=== PATIENT | female | born 1950 | race Asian ===

== ENCOUNTER 2017-02-07 08:03 | Outpatient (CLI) | payer OTHER ==
[~2017-02-07] VITALS: Ht 165.1 cm; Wt 73.9 kg
[2017-02-07 08:30] VITALS: BP 139/59; TEMP 98
[2017-02-07 09:30] VITALS: BP 125/62; TEMP 98
== END 2017-02-07 09:38 | disposition home or self-care (01) ==
LOC: INF 08:03
DX: J30.9 Allergic rhinitis, unspecified (principal); M77.31 Calcaneal spur, right foot; E11.9 Type 2 diabetes mellitus without complications; R30.0 Dysuria
CPT/HCPCS: 96365; Q0138

== ENCOUNTER 2017-04-22 12:40 | Outpatient (CLI) | payer OTHER | END 2017-04-22 19:28 | disposition home or self-care (01) | LOC: CT 12:40 | DX: G51.0 Bell's palsy (principal); G81.94 Hemiplegia, unspecified affecting left nondominant side; R41.0 Disorientation, unspecified ==

== ENCOUNTER 2020-02-25 11:49 | Emergency (ER) | payer OTHER ==
[~2020-02-25] VITALS: Ht 157.5 cm; Wt 63.5 kg
[2020-02-25 11:55] VITALS: TEMP 97
[2020-02-25 12:03] LABS: PLATELET COUNT 165 K/uL (152-353)
[2020-02-25 12:19] LABS: PARTIAL THROMBOPLASTIN TIME 27.7 SECONDS (24.5-33.6)
[2020-02-25 13:06] LABS: SODIUM 129 mmol/L (136-145)
[2020-02-25 13:10] LABS: POTASSIUM 2.3 mmol/L (3.6-5.2)
[2020-02-25 13:38] VITALS: BP 128/61
== END 2020-02-25 13:40 | disposition home or self-care (01) ==
LOC: ED 11:49
PROVIDERS: Hospitalist
DX: E11.649 Type 2 diabetes mellitus with hypoglycemia without coma (principal); N18.6 End stage renal disease; Z99.2 Dependence on renal dialysis; E86.0 Dehydration
CPT/HCPCS: 80053; 80320; 82550; 82553; 82962; 83880; 84484; 85027; 85610; 85730; 93005; 96365; 99283; 99284

== ENCOUNTER 2020-02-26 10:01 | Emergency (ER) | payer OTHER ==
[~2020-02-26] VITALS: Ht 157.5 cm; Wt 63.5 kg
[2020-02-26 10:42] LABS: PLATELET COUNT 208 K/uL (152-353)
[2020-02-26 10:53] LABS: POTASSIUM 2.6 mmol/L (3.6-5.2); SODIUM 127 mmol/L (136-145)
[2020-02-26 12:35] VITALS: BP 129/59; TEMP 98.4
== END 2020-02-26 12:29 | disposition home or self-care (01) ==
LOC: ED 10:01
PROVIDERS: Family Medicine
DX: R07.89 Other chest pain (principal); N18.6 End stage renal disease; Z99.2 Dependence on renal dialysis; E87.6 Hypokalemia
CPT/HCPCS: 36415; 80053; 82550; 82553; 84484; 85027; 93005; 99284

== ENCOUNTER 2020-02-29 18:37 | Emergency (ER) | payer OTHER ==
[~2020-02-29] VITALS: Ht 157.5 cm; Wt 78.5 kg
[2020-02-29 19:11] LABS: PLATELET COUNT 225 K/uL (152-353)
[2020-02-29 19:30] LABS: SODIUM 132 mmol/L (136-145)
[2020-02-29 19:36] LABS: POTASSIUM 2.2 mmol/L (3.6-5.2)
[2020-02-29 22:53] VITALS: BP 125/76; TEMP 98.4
== END 2020-02-29 22:50 | disposition home or self-care (01) ==
LOC: ED 18:37
PROVIDERS: Family Medicine
DX: E11.649 Type 2 diabetes mellitus with hypoglycemia without coma (principal); E87.6 Hypokalemia; Z99.2 Dependence on renal dialysis
CPT/HCPCS: 36415; 80053; 82550; 82553; 82962; 83605; 83880; 84484; 85027; 93005; 96365; 96366; 96375; 96376; 99284; J7060

== ENCOUNTER 2020-04-23 09:48 | Emergency (ER) | payer OTHER ==
[~2020-04-23] VITALS: Ht 157.5 cm; Wt 78.5 kg
[2020-04-23 10:21] LABS: PLATELET COUNT 310 K/uL (152-353)
[2020-04-23 11:07] LABS: POTASSIUM 3.1 mmol/L (3.6-5.2)
[2020-04-23 12:42] VITALS: BP 164/64; TEMP 97.8
== END 2020-04-23 12:50 | disposition home or self-care (01) ==
LOC: ED 09:48
PROVIDERS: Emergency Medicine
DX: R51 Headache (principal); N18.9 Chronic kidney disease, unspecified; Z99.2 Dependence on renal dialysis; Z03.818 Encounter for observation for suspected exposure to other biological agents ruled out
CPT/HCPCS: 80053; 85027; 87502; 87635; 87651; 93005; 96360; 96367; 96375; 96376; 99283; 99284; J1885; J2175; J2405; U00003

== ENCOUNTER 2020-09-30 13:44 | Emergency (ER) | payer OTHER ==
[~2020-09-30] VITALS: Ht 157.5 cm; Wt 78.5 kg
[2020-09-30 13:54] VITALS: TEMP 98.2
[2020-09-30 16:32] VITALS: BP 172/68
== END 2020-09-30 16:39 | disposition home or self-care (01) ==
LOC: ED 13:44
DX: M19.011 Primary osteoarthritis, right shoulder (principal)
CPT/HCPCS: 99283

== ENCOUNTER 2020-10-01 11:57 | Emergency (ER) | payer OTHER ==
[~2020-10-01] VITALS: Ht 157.5 cm; Wt 78.5 kg
[2020-10-01 13:20] LABS: POTASSIUM 3.2 mmol/L (3.6-5.2)
[2020-10-01 13:29] LABS: PLATELET COUNT 216 K/uL (152-353)
[2020-10-01 17:54] VITALS: BP 132/64; TEMP 97.6
== END 2020-10-01 17:57 | disposition short-term general hospital (02) ==
LOC: ED 11:57
PROVIDERS: Family Medicine
DX: J18.9 Pneumonia, unspecified organism (principal); Z03.818 Encounter for observation for suspected exposure to other biological agents ruled out
CPT/HCPCS: 36415; 80053; 82962; 83605; 85027; 87040; 87502; 87635; 87651; 94664; 96361; 96365; 96375; 96376; 99284; J0696; J7060; U0003